=== PATIENT | female | born 1970 | race Caucasian/White ===

== ENCOUNTER 2017-12-12 10:32 | Outpatient (CLI) | payer OTHER | END 2017-12-12 12:09 | disposition home or self-care (01) | LOC: NUCLEAR 10:32 | DX: R06.02 Shortness of breath (principal); R07.89 Other chest pain ==

== ENCOUNTER 2022-02-21 08:05 | Outpatient (CLI) | payer OTHER | END 2022-02-21 08:16 | disposition home or self-care (01) | LOC: SONOGRAMA 08:05 | PROVIDERS: ATTEND Pathology Anatomic Pathology & Clinical Pathology | DX: E04.2 Nontoxic multinodular goiter (principal) ==

== ENCOUNTER 2023-02-20 09:43 | Outpatient (CLI) | payer OTHER | END 2023-02-20 09:56 | disposition home or self-care (01) | LOC: SONOGRAMA 09:43 | PROVIDERS: ATTEND Obstetrics & Gynecology | DX: N84.0 Polyp of corpus uteri (principal) ==

== ENCOUNTER 2023-04-14 05:45 | Day surgery (SDC) | payer OTHER ==
[~2023-04-14] VITALS: Ht 167.6 cm; Wt 104.3 kg
== END 2023-04-14 14:20 | disposition home or self-care (01) ==
LOC: CIR.AMB 05:45
PROVIDERS: ATTEND Obstetrics & Gynecology
DX: C54.1 Malignant neoplasm of endometrium (principal); N85.01 Benign endometrial hyperplasia; Z20.822 Contact with and (suspected) exposure to COVID-19

== ENCOUNTER 2023-04-23 07:33 | Outpatient (CLI) | payer OTHER | END 2023-04-23 07:51 | disposition home or self-care (01) | LOC: MRI 07:33 → TOM 07:33 → MRI 07:51 | PROVIDERS: ATTEND Obstetrics & Gynecology | DX: C54.1 Malignant neoplasm of endometrium (principal); R10.2 Pelvic and perineal pain; R10.84 Generalized abdominal pain | CPT/HCPCS: 72197; 74183 ==